=== PATIENT | male | born 1990 | race Two or more races ===

== ENCOUNTER → 2024-07-25 | Outpatient (BNVA) | payer MEDICAID, SELFPAY | END | disposition home or self-care (01) | PROVIDERS: PCP Nurse Practitioner Family; Referring Provider Nurse Practitioner Family; Visit Provider Nurse Practitioner Family | DX: J10.1 Influenza due to other identified influenza virus with other respiratory manifestations (principal) | CPT/HCPCS: 87804; 87811; 99213 ==

== ENCOUNTER → 2024-08-02 | Outpatient (BNVA) | payer MEDICAID, SELFPAY | END | disposition home or self-care (01) | PROVIDERS: PCP Nurse Practitioner Family; Referring Provider Nurse Practitioner Family; Visit Provider Nurse Practitioner Family | DX: Z09 Encounter for follow-up examination after completed treatment for conditions other than malignant neoplasm (principal) | CPT/HCPCS: 99212; G0463 ==

== ENCOUNTER → 2024-12-02 | Outpatient (BNVA) | payer MEDICAID, SELFPAY | END | disposition home or self-care (01) | PROVIDERS: PCP Nurse Practitioner Family; Referring Provider Nurse Practitioner Family; Visit Provider Nurse Practitioner Family | DX: J06.9 Acute upper respiratory infection, unspecified (principal) | CPT/HCPCS: 87804; 87807; 87811; 90471; 99214 ==

== ENCOUNTER → 2024-12-11 | Outpatient (BNVA) | payer MEDICAID, SELFPAY | END | disposition home or self-care (01) | PROVIDERS: PCP Nurse Practitioner Family; Referring Provider Nurse Practitioner Family; Visit Provider Nurse Practitioner Family | DX: H61.20 Impacted cerumen, unspecified ear (principal); M77.10 Lateral epicondylitis, unspecified elbow; Z30.09 Encounter for other general counseling and advice on contraception; E55.9 Vitamin D deficiency, unspecified; Z13.1 Encounter for screening for diabetes mellitus; Z13.220 Encounter for screening for lipoid disorders; Z11.3 Encounter for screening for infections with a predominantly sexual mode of transmission; Z71.85 Encounter for immunization safety counseling | CPT/HCPCS: 99215 ==

== ENCOUNTER → 2024-12-20 | Outpatient (CLI) | payer MEDICAID, SELFPAY ==
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
== END | disposition home or self-care (01) ==
PROVIDERS: PCP Nurse Practitioner Family; Referring Provider Nurse Practitioner Family; Visit Provider Nurse Practitioner Family
DX: M25.521 Pain in right elbow (principal); G89.29 Other chronic pain
CPT/HCPCS: 73070

== ENCOUNTER → 2024-12-20 | Outpatient (BNVA) | payer MEDICAID, SELFPAY | END | disposition home or self-care (01) | PROVIDERS: PCP Nurse Practitioner Family; Referring Provider Nurse Practitioner Family; Visit Provider Nurse Practitioner Family | DX: H61.23 Impacted cerumen, bilateral (principal); M25.521 Pain in right elbow; G89.29 Other chronic pain; Z01.83 Encounter for blood typing | CPT/HCPCS: 69209; 99215 ==

== ENCOUNTER → 2025-01-03 | Outpatient (BNVA) | payer MEDICAID, SELFPAY | END | disposition home or self-care (01) | PROVIDERS: PCP Nurse Practitioner Family; Referring Provider Nurse Practitioner Family; Visit Provider Nurse Practitioner Family | DX: Z71.2 Person consulting for explanation of examination or test findings (principal); E55.9 Vitamin D deficiency, unspecified | CPT/HCPCS: 99212; G0463 ==